=== PATIENT | female | born 1995 | race Hispanic/Latino ===

== ENCOUNTER 2017-12-11 20:03 | Emergency (ER) | payer OTHER ==
[~2017-12-11] VITALS: Ht 167.6 cm; Wt 88.5 kg
[~2017-12-11 20:03] MED LIST: ACETAMINOPHEN325 M1 PO; AMBIEN5 MG PO; DEMULEN PEG; MELATONIN3 MG PO; NAPROXEN250 MG PO; OMEPRAZOLE40 MG PO; PROMETHAZINE HC25 M1 PO; TYLENOL WITH C1 EACH PO; ULTRAM50 MG PO
[2017-12-11 20:32] LABS: CLARITY,URINE SL CLOUDY (CLEAR); COLOR,URINE YELLOW (YELLOW); LEUKOCYTE ESTERASE ,URINE TRACE (NEGATIVE)
[2017-12-11 20:33] LABS: BILIRUBIN,URINE NEGATIVE (NEGATIVE); KETONES,URINE NEGATIVE (NEGATIVE); NITRITE,URINE NEGATIVE (NEGATIVE); PREGNANCY TEST, URINE NEGATIVE (NEGATIVE); PROTEIN,URINE DIPSTICK 1+ (NEGATIVE); URINE UROBILINOGEN 0.2 mg/dL (0.2 - 1)
[2017-12-11 20:43] LABS: BACTERIA,URINE MODERATE /HPF; RBC,URINE 21-50 /HPF (0-5)
[2017-12-11] MEDS ORDERED: CEFTRIAXONE SOD 1 GM VIAL IM ONE (21:00)
[2017-12-12] MEDS ORDERED: PHENAZOPYRIDINE HCL 100 MG TAB PO SCH (09:00)
== END 2017-12-11 22:07 | disposition home or self-care (01) ==
LOC: ER 20:03
DX: R30.0 Dysuria (principal); N30.01 Acute cystitis with hematuria; D64.9 Anemia, unspecified
CPT/HCPCS: 81001; 81025; 99283

== ENCOUNTER 2020-08-04 18:58 | Emergency (ER) | payer OTHER ==
[~2020-08-04] VITALS: Ht 167.6 cm; Wt 88.5 kg
[2020-08-04] MEDS ORDERED: HYDROCODONE/APAP 10MG-325MG TAB PO ONE ×2 (20:15→21:15)
[2020-08-04] MEDS ORDERED: TRAMADOL HCL 50 MG TAB PO ONE (20:15)
[2020-08-04] MEDS ORDERED: AMOXICILLIN/CLAVULANATE K 500 MG TAB PO ONE (20:15)
[2020-08-04] MEDS ORDERED: AUGMENTIN 875-1 EACH PO (20:17)
[2020-08-04] MEDS ORDERED: NAPROXEN250 MG PO (20:17)
[2020-08-04 21:58] VITALS: BP 108/81
== END 2020-08-04 22:07 | disposition home or self-care (01) ==
LOC: ER 19:25
DX: H66.91 Otitis media, unspecified, right ear (principal); D61.9 Aplastic anemia, unspecified; Z96.643 Presence of artificial hip joint, bilateral
CPT/HCPCS: 70360; 99283

== ENCOUNTER → 2020-09-19 | Emergency (ER) | payer OTHER ==
[~2020-09-19] VITALS: Ht 167.6 cm; Wt 88.5 kg
[~2020-09-19] MED LIST changes: +AUGMENTIN 875-1 EACH PO
== END | disposition home or self-care (01) ==
LOC: ER 14:50
DX: R05 Cough (principal); J40 Bronchitis, not specified as acute or chronic; D61.9 Aplastic anemia, unspecified; Z94.81 Bone marrow transplant status; Z96.643 Presence of artificial hip joint, bilateral; F17.210 Nicotine dependence, cigarettes, uncomplicated
CPT/HCPCS: 99283

== ENCOUNTER 2022-07-17 19:39 | Emergency (ER) | payer BC, OTHER ==
[~2022-07-17] VITALS: Ht 167.6 cm; Wt 88.5 kg
[2022-07-17 20:34] LABS: CLARITY,URINE CLEAR (CLEAR); COLOR,URINE YELLOW (YELLOW); KETONES,URINE NEGATIVE (NEGATIVE); LEUKOCYTE ESTERASE ,URINE SMALL (NEGATIVE); NITRITE,URINE NEGATIVE (NEGATIVE); PROTEIN,URINE DIPSTICK NEGATIVE (NEGATIVE); URINE UROBILINOGEN 0.2 mg/dL (0.2 - 1)
[2022-07-17 20:41] LABS: BACTERIA,URINE MODERATE /HPF; RBC,URINE 0-5 /HPF (0-5)
[2022-07-17 20:42] LABS: EPITHELIAL CELLS,URINE FEW /LPF
[2022-07-17] MEDS ORDERED: MACROBID 100 M100 MG PO (21:15)
[2022-07-17] MEDS ORDERED: DOXYCYCLINE HY100 MG PO (21:15)
[2022-07-17] MEDS ORDERED: ONDANSETRON ODT4 MG PO (21:16)
== END 2022-07-17 21:36 | disposition home or self-care (01) ==
LOC: ER 20:08
DX: N39.0 Urinary tract infection, site not specified (principal)
CPT/HCPCS: 81001; 81025; 99283

== ENCOUNTER 2023-02-21 10:12 | Emergency (ER) | payer BC, MEDICAID, OTHER ==
[~2023-02-21] VITALS: Ht 165.1 cm; Wt 80.3 kg
[~2023-02-21 10:12] MED LIST changes: +DOXYCYCLINE HY100 MG PO; +MACROBID 100 M100 MG PO; +ONDANSETRON ODT4 MG PO
[2023-02-21 10:30] VITALS: O2SAT 100
[2023-02-21] MEDS ORDERED: CYCLOBENZAPRINE10 MG PO (10:49)
[2023-02-21] MEDS ORDERED: KETOROLAC TROME10 MG PO (10:49)
[2023-02-21] MEDS ORDERED: KETOROLAC TROMETHAMINE 60 MG/2 ML VIAL IM ONE (11:00)
== END 2023-02-21 10:50 | disposition home or self-care (01) ==
LOC: ER 10:27
DX: M54.50 Low back pain, unspecified (principal); G89.29 Other chronic pain; D64.9 Anemia, unspecified; Z96.643 Presence of artificial hip joint, bilateral
CPT/HCPCS: 99283; J1885